=== PATIENT | male | born 1950 | race Caucasian/White ===

== ENCOUNTER 2021-10-25 03:26 | Inpatient (IN) ==
[2021-10-25] MEDS ORDERED: MoRPHine SULFATE 4 MG/ML 1 ML CARP\\VIAL IV STA ×2 (03:48→10:10)
[2021-10-25] MEDS ORDERED: ONDANSETRON INJ 2 MG/ML 2 ML VIAL IV STA (03:48)
--- NOTE | 2021-10-25 03:50 | Emergency Department Note ---
Impression & Plan Abdominal pain DC ED Provider Note HPI: The patient is a 70-year-old male with history of atrial fibrillation, on Coumadin, presents emergency department with chief complaint of acute onset right upper flank pain that began approximately 5 hours prior to arrival to the ED. Patient states he has had some nausea and an episode of vomiting as well. Patient states the pain is somewhat sharp in nature, states he has not had this pain previously. On arrival to the ED the patient is hemodynamically stable, mild distress secondary to pain and nausea but overall nontoxic-appearing. Patient is hemodynamically stable on arrival. ROS: -GI: Right upper quadrant pain/flank pain, nausea and vomiting *10 point review systems was conducted and is otherwise negative unless stated above *Outpatient medications and allergy history reviewed PE: General: Alert HEENT: Normocephalic, atraumatic Eyes: Extraocular eye movement is intact, no scleral erythema Pulmonary: Clear to auscultation bilaterally, no wheezing Cardio: Regular rate and rhythm GI: Abdomen is soft, tenderness in the right upper quadrant to palpation without guarding or rigidity, right flank tenderness : No suprapubic tenderness MSK: No evidence of trauma or malformation of the extremities, no edema Skin: No evidence of rash Neuro: Alert, no focal deficits 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 Prominent simple left renal cyst. Hydropic gallbladder measuring up to 5 cm in diameter. Right upper quadrant ultrasound could further evaluate Prominent colonic diverticula without evidence of diverticulitis. Appendix unremarkable. No free air or free fluid. Approximately 2.2 cm right adrenal adenoma. No follow-up imaging is necessary. Consider biochemical assays to determine functional status and exclude pheochromocytoma if biopsy/resection is planned. Moderate cardiomegaly. Atelectasis at the lung bases. Left hip arthroplasty. Radiologist: Adalberto Campbell M.D. Medical Decision Making: Patient presented to the emergency department chief complaint of right upper quadrant right flank pain. CT imaging was obtained that shows a hydropic gallbladder measuring up to 5 cm in diameter, no evidence of any kidney stones or hydronephrosis. Given this finding, ultrasound imaging of the right upper quadrant was obtained that shows possible acalculous cholecystitis. Patient does not have any transaminitis or elevated bilirubin. INR is noted to be 2.1. On my reassessment following this imaging patient states he still does have some upper abdominal discomfort and nausea despite receiving a dose of morphine here in the ED for pain. Surgical consult was placed, patient is pending full evaluation by the surgical team at the time of signout to my colleague, Dr. Burton, pending surgical recommendations and final disposition. Diagnosis: 1. Right-sided abdominal pain, acute 2. Acalculous cholecystitis 3. Nausea and vomiting Disposition: Admission Jaylan Barnard DO Emergency Medicine Past Med/Surg History Medical History A-fib BPH (benign prostatic hyperplasia) Depression with anxiety Diastolic dysfunction GERD (gastroesophageal reflux disease) HLD (hyperlipidemia) HTN (hypertension) Surgical History History of bilateral knee replacement History of hernia repair History of sinus surgery History of total left hip arthroplasty Family History Father Prostate cancer Coronary heart disease Mother CHF (congestive heart failure) Social History (Updated 10/25/21 @ 10:29 by Tamiko Castillo PA-C) Smoking Status: Never smoker Hx Alcohol Use: Yes Alcohol type: beer Alcohol Intake Frequency: 4 or More x per/Week Alcohol Intake Frequency Comment: 15 light beers/wk Hx Substance Use: No Preferred Language: Lithuanian Communication Ability: Effective Modeling Agent Required: No Beliefs That Will Affect Care: None marital status: Current Living Situation: Spouse current occupational status: retired Other Information That Helps Us Care for You: No Feels Safe at Home: Yes Safety Concerns: Feels Safe At This Time Assistive Devices: Glasses and Hearing Aid - Bilateral Allergies Allergies Allergy/AdvReac Type Severity Reaction Status Date / Time No Known Allergies Allergy Verified 12/08/18 15:35 Home Meds Home Medications Medication Instructions Recorded Confirmed amlodipine 10 mg tablet 10 mg PO DAILY 12/08/18 10/25/21 atorvastatin 20 mg tablet 20 mg PO DAILY 12/08/18 10/25/21 buspirone 10 mg tablet 10 mg PO BID 12/08/18 10/25/21 lorazepam 1 mg tablet 1 mg PO PM 12/08/18 10/25/21 lorazepam 2 mg tablet 2 mg PO QAM 12/08/18 10/25/21 metoprolol succinate 50 mg 50 mg PO DAILY 12/08/18 10/25/21 tablet,extended release 24 hr potassium chloride 10 mEq 10 meq PO TIDM 12/08/18 10/25/21 tablet,extended release(part/cryst) sertraline 100 mg tablet 300 mg PO QAM 12/08/18 10/25/21 warfarin 6 mg tablet 3 mg PO SUTUTHFR@1630 12/08/18 10/25/21 warfarin 6 mg tablet 6 mg PO MOWESA@1630 12/08/18 10/25/21 finasteride 5 mg tablet 5 mg PO DAILY 10/25/21 10/25/21 losartan 100 mg tablet 100 mg PO DAILY 10/25/21 10/25/21 pantoprazole 20 mg tablet,delayed 20 mg PO DAILY 10/25/21 10/25/21 release risperidone 0.5 mg tablet 0.5 mg PO AMHS 10/25/21 10/25/21 Results & Data (ED) Vital Signs Vital Signs - 24 hr 10/25/21 03:30 10/25/21 04:30 10/25/21 05:00 Temperature 36.4 C L Temperature Source Temporal Artery Scan Pulse Rate 81 68 79 Pulse Rate from SpO2 Sensor 72 76 Respiratory Rate 18 17 22 Respiratory Effort / Characteristics Non-Labored Spontaneous Respiratory Depth Normal Blood Pressure 142/96 H 150/86 H 146/84 H Blood Pressure Mean 111 107 104 Pulse Oximetry 98 95 95 Oxygen Delivery Method Room Air Room Air Room Air Sepsis New/Unexplained Change in Mental Status N/A Sepsis Action Taken by Nursing No Action Required 10/25/21 05:30 10/25/21 06:23 10/25/21 06:30 Temperature Temperature Source Pulse Rate 77 72 Pulse Rate from SpO2 Sensor 72 72 Respiratory Rate 20 24 Respiratory Effort / Characteristics Respiratory Depth Blood Pressure 151/104 H 149/99 H 142/89 H Blood Pressure Mean 119 115 106 Pulse Oximetry 96 95 Oxygen Delivery Method Room Air Room Air Sepsis New/Unexplained Change in Mental Status Sepsis Action Taken by Nursing 10/25/21 06:30 10/25/21 07:00 10/25/21 07:00 Temperature Temperature Source Pulse Rate 79 76 Pulse Rate from SpO2 Sensor 81 Respiratory Rate 25 H 21 Respiratory Effort / Characteristics Respiratory Depth Blood Pressure 161/97 H Blood Pressure Mean 118 Pulse Oximetry 96 Oxygen Delivery Method Sepsis New/Unexplained Change in Mental Status Sepsis Action Taken by Nursing 10/25/21 07:30 10/25/21 07:30 10/25/21 08:00 Temperature Temperature Source Pulse Rate 78 Pulse Rate from SpO2 Sensor 77 Respiratory Rate 17 Respiratory Effort / Characteristics Respiratory Depth Blood Pressure 150/94 H 144/94 H Blood Pressure Mean 112 110 Pulse Oximetry 91 Oxygen Delivery Method Sepsis New/Unexplained Change in Mental Status Sepsis Action Taken by Nursing 10/25/21 08:00 10/25/21 08:30 10/25/21 08:30 Temperature Temperature Source Pulse Rate 76 73 Pulse Rate from SpO2 Sensor 78 75 Respiratory Rate 19 18 Respiratory Effort / Characteristics Respiratory Depth Blood Pressure 168/99 H Blood Pressure Mean 122 Pulse Oximetry 97 98 Oxygen Delivery Method Sepsis New/Unexplained Change in Mental Status Sepsis Action Taken by Nursing 10/25/21 09:00 10/25/21 09:00 Temperature Temperature Source Pulse Rate 78 Pulse Rate from SpO2 Sensor 76 Respiratory Rate 24 Respiratory Effort / Characteristics Respiratory Depth Blood Pressure 169/99 H Blood Pressure Mean 122 Pulse Oximetry 96 Oxygen Delivery Method Sepsis New/Unexplained Change in Mental Status Sepsis Action Taken by Nursing Laboratory Data Result diagrams: 10/25/21 03:45 10/25/21 03:45 Lab Results 10/25/21 10/25/21 10/25/21 Range/Units 03:40 03:45 03:45 WBC 8.99 (4.8-10.8) K/ul RBC 5.21 (4.63-6.08) M/uL Hgb 15.2 (14.0-18.0) g/dl Hct 44.4 (40.1-51.0) % MCV 85.2 (80.0-100.0) fL MCH 29.2 (25.0-34.0) pg MCHC 34.2 (32.0-36.0) g/dL RDW Std Deviation 41.4 (36.4-46.3) fL RDW Coeff of Radu 13.3 (11.5-14.5) % Plt Count 119 L (130-400) K/uL MPV 10.2 (9.4-12.4) fL Immature Gran % (Auto) 0.3 % Neut % (Auto) 83.9 % Lymph % (Auto) 7.6 % [place] % (Auto) 7.0 % Eos % (Auto) 0.8 % Baso % (Auto) 0.4 % Neut # (Auto) 7.54 H (1.4-6.5) K/uL Lymph # (Auto) 0.68 L (1.2-3.4) K/uL [place] # (Auto) 0.63 (0.24-0.82) K/uL Eos # (Auto) 0.07 (0-0.50) K/uL Baso # (Auto) 0.04 (0-0.2) K/uL Immature Gran # (Auto) 0.03 H (0.00-0.02) K/uL RBC Morphology Unremarkable PT (9.0-12.0) Seconds INR (0.9-1.1) Sodium 137 (136-145) mmol/L Potassium 3.3 L (3.5-5.1) mmol/L Chloride 101 (98-107) mmol/L Carbon Dioxide 28 (21-32) mmol/L Anion Gap 8 (3-11) BUN 14 (6-23) mg/dl Creatinine 0.95 (0.6-1.4) mg/dl Est Cr Clr Drug Dosing 83.8 ml/min Est GFR ( Amer) 92.3 ml/min Est GFR (Non-Af Amer) 79.7 ml/min BUN/Creatinine Ratio 14.7 (10-20) Glucose 119 H (70-99(Fasting)) mg/dl Calcium 8.8 (8.5-10.1) mg/dl Total Bilirubin 0.9 (0.2-1.0) mg/dl AST 37 (13-39) U/L ALT 39 (7-52) U/L Alkaline Phosphatase 100 (34-104) U/L Total Protein 7.5 (6.0-8.3) gm/dl Albumin 4.4 (3.4-5.0) gm/dl Globulin 3.1 (2.5-4.0) gm/dl Albumin/Globulin Ratio 1.4 (0.9-2) Lipase 27 (11-82) U/L Urine Color Dark Yellow Urine Appearance Clear (Clear) Urine pH 5.5 (4.5-7.5) Ur Specific Martin 1.023 (1.000-1.030) Urine Protein 2+ H (Negative) Urine Glucose (UA) Negative (Negative) Urine Ketones Trace H (Negative) Urine Blood Trace H (Negative) Urine Nitrite Negative (Negative) Urine Bilirubin Negative (Negative) Urine Urobilinogen Negative (Negative) Ur Leukocyte Esterase Negative (Negative) Urine WBC (Auto) 0 (0-5) /hpf Urine RBC (Auto) 0-4 (0-4) /hpf U Hyaline Cast (Auto) 1-5 (0-5) /lpf U Epithel Cells (Auto) 5-10 H (0-5) /lpf Urine Bacteria (Auto) Negative (Negative) SARS-CoV-2, RNA, NAAT (NEGATIVE) 10/25/21 10/25/21 Range/Units 03:45 09:10 WBC (4.8-10.8) K/ul RBC (4.63-6.08) M/uL Hgb (14.0-18.0) g/dl Hct (40.1-51.0) % MCV (80.0-100.0) fL MCH (25.0-34.0) pg MCHC (32.0-36.0) g/dL RDW Std Deviation (36.4-46.3) fL RDW Coeff of Radu (11.5-14.5) % Plt Count (130-400) K/uL MPV (9.4-12.4) fL Immature Gran % (Auto) % Neut % (Auto) % Lymph % (Auto) % [place] % (Auto) % Eos % (Auto) % Baso % (Auto) % Neut # (Auto) (1.4-6.5) K/uL Lymph # (Auto) (1.2-3.4) K/uL [place] # (Auto) (0.24-0.82) K/uL Eos # (Auto) (0-0.50) K/uL Baso # (Auto) (0-0.2) K/uL Immature Gran # (Auto) (0.00-0.02) K/uL RBC Morphology PT 21.5 H (9.0-12.0) Seconds INR 2.1 H (0.9-1.1) Sodium (136-145) mmol/L Potassium (3.5-5.1) mmol/L Chloride (98-107) mmol/L Carbon Dioxide (21-32) mmol/L Anion Gap (3-11) BUN (6-23) mg/dl Creatinine (0.6-1.4) mg/dl Est Cr Clr Drug Dosing ml/min Est GFR ( Amer) ml/min Est GFR (Non-Af Amer) ml/min BUN/Creatinine Ratio (10-20) Glucose (70-99(Fasting)) mg/dl Calcium (8.5-10.1) mg/dl Total Bilirubin (0.2-1.0) mg/dl AST (13-39) U/L ALT (7-52) U/L Alkaline Phosphatase (34-104) U/L Total Protein (6.0-8.3) gm/dl Albumin (3.4-5.0) gm/dl Globulin (2.5-4.0) gm/dl Albumin/Globulin Ratio (0.9-2) Lipase (11-82) U/L Urine Color Urine Appearance (Clear) Urine pH (4.5-7.5) Ur Specific Martin (1.000-1.030) Urine Protein (Negative) Urine Glucose (UA) (Negative) Urine Ketones (Negative) Urine Blood (Negative) Urine Nitrite (Negative) Urine Bilirubin (Negative) Urine Urobilinogen (Negative) Ur Leukocyte Esterase (Negative) Urine WBC (Auto) (0-5) /hpf Urine RBC (Auto) (0-4) /hpf U Hyaline Cast (Auto) (0-5) /lpf U Epithel Cells (Auto) (0-5) /lpf Urine Bacteria (Auto) (Negative) SARS-CoV-2, RNA, NAAT NEGATIVE (NEGATIVE) Administered Medications Amlodipine Besylate (Amlodipine Besylate 5 Mg Tab) 10 mg PO DAILY LI Stop: 11/24/21 11:29 Last Admin: 10/25/21 12:26 Dose: 10 mg Documented By: JAMES Atorvastatin Calcium (Atorvastatin 20 Mg Tab) 20 mg PO DAILY LI Stop: 11/24/21 11:29 Last Admin: 10/25/21 12:26 Dose: 20 mg Documented By: JAMES Buspirone HCl (Buspirone 5 Mg Tab) 10 mg PO BID LI Stop: 11/24/21 11:29 Last Admin: 10/25/21 20:59 Dose: 10 mg Documented By: Admin: 10/25/21 13:06 Dose: 10 mg Documented By: JAMES Finasteride (Finasteride 5 Mg Tab) 5 mg PO DAILY [facility] Stop: 11/24/21 11:29 Last Admin: 10/25/21 12:26 Dose: 5 mg Documented By: JAMES Piperacillin Sod/Tazobactam (Sod 4.5 gm/ Dextrose) 120 mls @ 30 mls/hr IV Q8H [facility]; Protocol Stop: 11/04/21 17:59 Last Infusion: 10/25/21 21:13 Dose: 0 mls/hr Documented By: Admin: 10/25/21 17:10 Dose: 30 mls/hr Documented By: JAMES Lactated Ringer's (Lr) 1,000 mls @ 75 mls/hr IV .[id number] [facility] Stop: 11/24/21 11:29 Last Infusion: 10/25/21 13:02 Dose: 0 mls/hr Documented By: Admin: 10/25/21 12:02 Dose: 75 mls/hr Documented By: JAMES Lorazepam (Lorazepam 1 Mg Tab) 2 mg PO QAM [facility] Stop: 11/24/21 11:29 Last Admin: 10/25/21 12:26 Dose: 2 mg Documented By: JAMES Lorazepam (Lorazepam 1 Mg Tab) 1 mg PO DAILY@1700 [facility] Stop: 11/24/21 16:59 Last Admin: 10/25/21 17:10 Dose: 1 mg Documented By: JAMES Metoprolol Succinate (Metoprolol Succ 50mg Ext Rel Tab) 50 mg PO DAILY LI Stop: 11/24/21 11:29 Last Admin: 10/25/21 12:26 Dose: 50 mg Documented By: JAMES Potassium Chloride (Potassium Chloride 10 Meq Tabcr) 10 meq PO TIDM [facility] Stop: 11/24/21 11:59 Last Admin: 10/25/21 17:10 Dose: 10 meq Documented By: Admin: 10/25/21 12:30 Dose: 10 meq Documented By: JAMES Risperidone (Risperidone 0.5 Mg Tablet) 0.5 mg PO BID [facility] Stop: 11/24/21 20:59 Last Admin: 10/25/21 20:59 Dose: 0.5 mg Documented By: ED Discontinued Medications Phytonadione 5 mg/ Dextrose 50.5 mls @ 101 mls/hr IV 1145 ONE Stop: 10/25/21 12:14 Last Infusion: 10/25/21 13:12 Dose: 0 mls/hr Documented By: Admin: 10/25/21 12:27 Dose: 101 mls/hr Documented By: JAMES Piperacillin Sod/Tazobactam (Sod 4.5 gm/ Dextrose) 120 mls @ 240 mls/hr IV ONE ONE; Protocol Stop: 10/25/21 12:29 Last Infusion: 10/25/21 13:37 Dose: 0 mls/hr Documented By: Admin: 10/25/21 13:06 Dose: 240 mls/hr Documented By: JAMES Morphine Sulfate (Morphine Sulfate 4 Mg/Ml 1 Ml Carp\Vial) 4 mg IV NOW STA Stop: 10/25/21 03:49 Last Admin: 10/25/21 04:14 Dose: 4 mg Documented By: THERESA Morphine Sulfate (Morphine Sulfate 4 Mg/Ml 1 Ml Carp\Vial) 4 mg IV NOW STA Stop: 10/25/21 10:11 Last Admin: 10/25/21 10:19 Dose: 4 mg Documented By: ML Ondansetron HCl (Ondansetron Inj 2 Mg/Ml 2 Ml Vial) 4 mg IV NOW STA Stop: 10/25/21 03:49 Last Admin: 10/25/21 09:06 Dose: Not Given Documented By: ML Potassium Chloride (Potassium Chloride Crtab 20 Meq Tabcr) 40 meq PO NOW STA Stop: 10/25/21 09:40 Last Admin: 10/25/21 10:19 Dose: 40 meq Documented By: ML Imaging Data Radiologist's Impression: Abdomen/Pelvis CT 10/25/21 03:48 CT abd pelvis wo con CLINICAL HISTORY: R flank pain TECHNIQUE: Helical axial images of the abdomen and pelvis were obtained. Automated dose lowering techniques and/or adjustment according to patient size were utilized for this exam. This exam was performed without intravenous contrast. CT DOSE: 1461.64 mGy.cm COMPARISON: None available at the time of this dictation. FINDINGS: Lower chest: Bibasilar atelectasis versus scarring is seen. Cardiomegaly is partially visualized. Liver: Unremarkable. No focal lesions are seen. Gallbladder and biliary tree: There is prominence of the gallbladder with wall thickening to 4 mm. No intra- or extrahepatic biliary ductal dilation. Pancreas: Unremarkable, no focal lesions. Spleen: Unremarkable. 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 Kidneys and ureters: A left kidney superior pole cyst is noted. No evidence of hydronephrosis or obstructive lithiasis. Bladder: Limited evaluation due to underdistention. Reproductive organs: Unremarkable. Bowel: Diverticulosis is seen without evidence of diverticulitis. The appendix is normal. A hiatal hernia is seen. Lymph nodes Retroperitoneal: Unremarkable. Mesenteric: Unremarkable. Pelvic: Unremarkable. Peritoneum: Normal. Vessels: Atherosclerotic calcifications are seen. Abdominal wall: Unremarkable. Bones: Degenerative changes in the visualized spine. A left hip total arthroplasty is seen. IMPRESSION: Prominent hydropic gallbladder with wall thickening. This is further evaluated by ultrasound gallbladder performed same day. If clinical uncertainty remains, nuclear medicine HIDA scan can be performed. ACT 112: Negative or not required by law. Electronically signed by: Quincy Bush M.D. 10/25/2021 8:16 AM Gallbladder Ultrasound 10/25/21 05:29 US gallbladder LIMITED ABDOMEN CLINICAL HISTORY: RUQ pain. COMPARISON: None. TECHNIQUE: Multiple grayscale and color images of the right upper quadrant of the abdomen. FINDINGS: The study is limited by overlying bowel gas. Pancreas: The pancreas could not be visualized. Liver: The left lobe of the liver is also obscured. Right lobe is within normal limits. There is no evidence for a focal mass. There is no intrahepatic biliary duct dilatation. Gallbladder: The gallbladder is distended and filled with sludge. No definite calculi are seen. However, there is very minimal wall thickening or pericholecystic edema. There was reportedly a negative sonographic Mckeon sign. However, the patient was sedated. Common Bile Duct: (CBD): It is normal in size measuring 6 mm. Inferior Vena Cava (IVC): The imaged IVC is patent. Right kidney: There is no evidence for hydronephrosis, calculus or gross renal mass. There is a small 1.3 cm simple cyst present. The kidney is normal in size. It measures 11.8 x 6.4 x 6.1 cm. IMPRESSION: 1. Distended gallbladder with sludge, mild gallbladder wall thickening and minimal pericholecystic edema. The presence of early acalculous cholecystitis cannot be excluded based on this study. ACT 112: Negative or not required by law. Electronically signed by: Satya Briscoe M.D. 10/25/2021 7:09 AM Discharge Plan Visit Data Chief Complaint: Flank Pain Stated Complaint: FLANK PAIN,VOMITING ED Provider: Fifi Burton Discharge Problem: Abdominal pain Patient Disposition: Admitted As Inpatient Discharge Instructions Interventions: ED Discharge Assessment Last Done: 10/25/21 10:27
[2021-10-25 04:33] LABS: Albumin Globulin Ratio 1.4 (0.9-2); Albumin Level 4.4 gm/dl (3.4-5.0); BUN Creatinine Ratio 14.7 (10-20); Bilirubin,Total 0.9 mg/dl (0.2-1.0); Calcium 8.8 mg/dl (8.5-10.1); Creatinine Clr Calc Pharmacy 83.8 ml/min; Est GFR (African American) 92.3 ml/min; Est GFR (Non-African American) 79.7 ml/min; Globulin 3.1 gm/dl (2.5-4.0); Potassium 3.3 mmol/L (3.5-5.1); Total Protein 7.5 gm/dl (6.0-8.3)
[2021-10-25 04:35] LABS: INR 2.1 (0.9-1.1); Prothrombin Time 21.5 Seconds (9.0-12.0)
[2021-10-25 04:53] LABS: Hematocrit (blood only) 44.4 % (40.1-51.0); Hemoglobin 15.2 g/dl (14.0-18.0); Mean Corpuscular Hemoglobin 29.2 pg (25.0-34.0); Mean Corpuscular Hgb Conc 34.2 g/dL (32.0-36.0); Mean Corpuscular Volume 85.2 fL (80.0-100.0); Mean Platelet Volume 10.2 fL (9.4-12.4); Platelet Count 119 K/uL (130-400); RDW Coefficient of Variation 13.3 % (11.5-14.5); RDW Standard Deviation 41.4 fL (36.4-46.3); Red Blood Count 5.21 M/uL (4.63-6.08); White Blood Count 8.99 K/ul (4.8-10.8)
[2021-10-25 04:54] LABS: Basophils # (auto) 0.04 K/uL (0-0.2); Basophils % (auto) 0.4 %; Eosinophils # (auto) 0.07 K/uL (0-0.50); Eosinophils % (auto) 0.8 %; Immature Granulocytes # (auto) 0.03 K/uL (0.00-0.02); Immature Granulocytes % (auto) 0.3 %; Lymphocytes # (auto) 0.68 K/uL (1.2-3.4); Lymphocytes % (auto) 7.6 %; Monocytes # (auto) 0.63 K/uL (0.24-0.82); Neutrophils # (auto) 7.54 K/uL (1.4-6.5); Neutrophils % (auto) 83.9 %; RBC Morphology Unremarkable
[2021-10-25 05:08] LABS: Appearance Urine Clear (Clear); Bacteria Urine Automated Negative (Negative); Bilirubin Urine Negative (Negative); Blood Urine Trace (Negative); Color Urine Dark Yellow; Glucose Urine UA Negative (Negative); Ketones Urine Trace (Negative); Leukocyte Esterase Urine Negative (Negative); Nitrite Urine Negative (Negative); Protein Urine 2+ (Negative); RBC Urine Automated 0-4 /hpf (0-4); Specific Gravity Urine 1.023 (1.000-1.030); Urobilinogen Urine Negative (Negative); WBC Urine Automated 0 /hpf (0-5); pH Urine 5.5 (4.5-7.5)
--- NOTE | 2021-10-25 07:11 | Ultrasound Report ---
US gallbladder LIMITED ABDOMEN CLINICAL HISTORY: RUQ pain. COMPARISON: None. TECHNIQUE: Multiple grayscale and color images of the right upper quadrant of the abdomen. FINDINGS: The study is limited by overlying bowel gas. Pancreas: The pancreas could not be visualized. Liver: The left lobe of the liver is also obscured. Right lobe is within normal limits. There is no e vidence for a focal mass. There is no intrahepatic biliary duct dilatation. Gallbladder: The gallbladder is distended and filled with sludge. No definite calculi are seen. Howev er, there is very minimal wall thickening or pericholecystic edema. There was reportedly a negative s onographic Mckeon sign. However, the patient was sedated. Common Bile Duct: (CBD): It is normal in size measuring 6 mm. Inferior Vena Cava (IVC): The imaged IVC is patent. Right kidney: There is no evidence for hydronephrosis, calculus or gross renal mass. There is a small 1.3 cm simple cyst present. The kidney is normal in size. It measures 11.8 x 6.4 x 6.1 cm. IMPRESSION: 1. Distended gallbladder with sludge, mild gallbladder wall thickening and minimal pericholecystic ed jovan. The presence of early acalculous cholecystitis cannot be excluded based on this study. ACT 112: Negative or not required by law. Electronically signed by: Satya Briscoe M.D. 10/25/2021 7:09 AM
--- NOTE | 2021-10-25 08:18 | CT Scan Report ---
CT abd pelvis wo con CLINICAL HISTORY: R flank pain TECHNIQUE: Helical axial images of the abdomen and pelvis were obtained. Automated dose lowering tech niques and/or adjustment according to patient size were utilized for this exam. This exam was perfor med without intravenous contrast. CT DOSE: 1461.64 mGy.cm COMPARISON: None available at the time of this dictation. FINDINGS: Lower chest: Bibasilar atelectasis versus scarring is seen. Cardiomegaly is partially visualized. Liver: Unremarkable. No focal lesions are seen. Gallbladder and biliary tree: There is prominence of the gallbladder with wall thickening to 4 mm. No intra- or extrahepatic biliary ductal dilation. Pancreas: Unremarkable, no focal lesions. Spleen: Unremarkable. 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 Kidneys and ureters: A left kidney superior pole cyst is noted. No evidence of hydronephrosis or obst ructive lithiasis. Bladder: Limited evaluation due to underdistention. Reproductive organs: Unremarkable. Bowel: Diverticulosis is seen without evidence of diverticulitis. The appendix is normal. A hiatal he rnia is seen. Lymph nodes Retroperitoneal: Unremarkable. Mesenteric: Unremarkable. Pelvic: Unremarkable. Peritoneum: Normal. Vessels: Atherosclerotic calcifications are seen. Abdominal wall: Unremarkable. Bones: Degenerative changes in the visualized spine. A left hip total arthroplasty is seen. IMPRESSION: Prominent hydropic gallbladder with wall thickening. This is further evaluated by ultrasound gallblad tha performed same day. If clinical uncertainty remains, nuclear medicine HIDA scan can be performed. ACT 112: Negative or not required by law. Electronically signed by: Quincy Bush M.D. 10/25/2021 8:16 AM
[2021-10-25] MEDS ORDERED: POTASSIUM CHLORIDE CRTAB 20 MEQ TABCR PO STA (09:39)
--- NOTE | 2021-10-25 09:48 | History & Physical Report ---
Date of Service October 25, 2021 Assessment & Plan (1) Acute cholecystitis: (2) Hypokalemia: (3) A-fib: (4) HTN (hypertension): (5) HLD (hyperlipidemia): (6) Depression with anxiety: Plan This is a 70-year-old male who has significant past medical history of chronic atrial fibrillation anticoagulated on warfarin, HTN, HLD, diastolic dysfunction, GERD, BPH, depression who presents to ED secondary to right flank pain and right upper quadrant pain which started yesterday at approximately 11 PM. Acute Cholecystitis admit to med tele consult general surgery Plan for OR in a.m. reverse INR, will give 5mg IV vit K IV zosyn for broad spectrum antibiotic IVF NPO will get ekg and cxr for pre op testing echo done 06/2019 EF 55%, diastolic dysfxn pt able to complete ~ to 4 METS of activity w/o getting CP or SOB. He is active in his yard with mowing and raking no hx of tia/cva, do not feel heparin bridging warranted at this time consult anesthesia relative low risk procedure, per revised cardiac index risk of adverse events 3.9% Hypokalemia replace Chronic Atrial fib continue metoprolol hold warfarin, INR 2.1 give 5mg IV vit K so pt optimized for surgery in a.m. HTN bp stable continue amlodipine will hold losartan for now, resume when able Depression with anxiety continue buspar, zoloft and risperdone mood stable DVT ppx: hold warfarin, SCDS Dispo: med tele, OR in a.m. for acute digna PCP: Raffaele FULL CODE Pt was seen and examined in collaboration with Dr. Barragan, please see addendum History of Present Illness Chief Complaint: R flank pain/RUQ pain x 1 day. Primary Care Provider: Golden Castorena MD This is a 70-year-old male who has significant past medical history of chronic atrial fibrillation anticoagulated on warfarin, HTN, HLD, diastolic dysfunction, GERD, BPH, depression who presents to ED secondary to right flank pain and right upper quadrant pain which started yesterday at approximately 11 PM. Pain initially started in the right flank and radiated to the right upper quadrant. Pain is constant. Nothing makes pain worse. It was made better with IV morphine. He denies ever having similar symptoms in the past. Does not associated with meals. Denies any prior history of gallbladder disease. States over the last 2 to 3 days his stomach has not felt, "quite right." When pain started last evening he did have 2-3 episodes of vomiting as well as nausea. He continues to feel nauseated. He denies any fever, chills, sweats, lightheadedness, dizziness, chest pain, shortness of breath, cough, URI symptoms, hematemesis, melena, medic easier, dysuria, increased urgency or frequency with urination. In ED patient remained hemodynamically stable. Imaging revealed a calculus cholecystitis. General surgery was consulted and plan is for patient to go to the OR tomorrow morning at 730 AM. Allergies Allergy/AdvReac Type Severity Reaction Status Date / Time No Known Allergies Allergy Verified 12/08/18 15:35 Home Medications Medication Instructions Recorded Confirmed Type amlodipine 10 mg tablet 10 mg PO DAILY 12/08/18 10/25/21 History atorvastatin 20 mg tablet 20 mg PO DAILY 12/08/18 10/25/21 History buspirone 10 mg tablet 10 mg PO BID 12/08/18 10/25/21 History lorazepam 1 mg tablet 1 mg PO PM 12/08/18 10/25/21 History lorazepam 2 mg tablet 2 mg PO QAM 12/08/18 10/25/21 History metoprolol succinate 50 mg 50 mg PO DAILY 12/08/18 10/25/21 History tablet,extended release 24 hr potassium chloride 10 mEq 10 meq PO TIDM 12/08/18 10/25/21 History tablet,extended release(part/cryst) sertraline 100 mg tablet 300 mg PO QAM 12/08/18 10/25/21 History warfarin 6 mg tablet 3 mg PO SUTUTHFR@1630 12/08/18 10/25/21 History warfarin 6 mg tablet 6 mg PO MOWESA@1630 12/08/18 10/25/21 History finasteride 5 mg tablet 5 mg PO DAILY 10/25/21 10/25/21 History losartan 100 mg tablet 100 tab PO DAILY 10/25/21 10/25/21 History pantoprazole 20 mg tablet,delayed 20 mg PO DAILY 10/25/21 10/25/21 History release risperidone 0.5 mg tablet 0.5 mg PO AMHS 10/25/21 10/25/21 History Past Med/Surg History Medical History A-fib BPH (benign prostatic hyperplasia) Depression with anxiety Diastolic dysfunction GERD (gastroesophageal reflux disease) HLD (hyperlipidemia) HTN (hypertension) Surgical History History of bilateral knee replacement History of hernia repair History of sinus surgery History of total left hip arthroplasty Family History Father Prostate cancer Coronary heart disease Mother CHF (congestive heart failure) Social History (Updated 10/25/21 @ 10:29 by Tamiko Castillo PA-C) Smoking Status: Never smoker Hx Alcohol Use: Yes Alcohol type: beer Alcohol Intake Frequency: 4 or More x per/Week Alcohol Intake Frequency Comment: 15 light beers/wk Hx Substance Use: No Preferred Language: Welsh marital status: Current Living Situation: Spouse current occupational status: retired Feels Safe at Home: Yes Review of Systems Review of Systems: All systems reviewed & are unremarkable except as noted in HPI & below Physical Exam Physical Exam: Constitutional: WD/WN, vitals as above, NAD, sitting up in bed, pleasant, conversing easily Head: Normocephalic, Atraumatic Eyes: PERRL, conjunctivae normal, anicteric sclerae ENMT: external ear and nose normal, oropharynx normal Neck: trachea midline, no thyromegaly normal visual inspection Respiratory: normal respiratory effort, lungs clear to auscultation, no wheeze, rales, rhonchi. Normal insp/exp effort, no accessory muscle use Cardiovascular: IRR/IRR, no murmur, no edema Vessels: no JVD or carotid bruit Chest: normal inspection of chest Abdomen: normal bowel sounds, soft, tender to palp RUQ and epigastrium, Musculoskeletal: no cyanosis or clubbing, AROM x 4 Skin: no rashes, warm and dry normal turgor Neurologic: PERRL, EOMI, accommodation nl, no face palsy, no dysarthria CN's II-XI intact bilaterally and moves all extremities Psychiatric: A+Ox3, euthymic affect : deferred Results & Data Results & Data ([facility]) Vital Signs (Past 12 Hours) Vital Signs Temp Pulse Resp BP Pulse Ox O2 Del Method 10/25/21 08:00 76 19 97 10/25/21 08:00 144/94 H 10/25/21 07:30 78 17 91 10/25/21 07:30 150/94 H 10/25/21 07:00 76 21 96 10/25/21 07:00 161/97 H 10/25/21 06:30 79 25 H 10/25/21 06:30 142/89 H 10/25/21 06:23 72 24 149/99 H 95 Room Air 10/25/21 05:30 77 20 151/104 H 96 Room Air 10/25/21 05:00 79 22 146/84 H 95 Room Air 10/25/21 04:30 68 17 150/86 H 95 Room Air 10/25/21 03:30 36.4 C L 81 18 142/96 H 98 Room Air Diagnostic Findings Abdomen/Pelvis CT 10/25/21 03:48 CT abd pelvis wo con CLINICAL HISTORY: R flank pain TECHNIQUE: Helical axial images of the abdomen and pelvis were obtained. Automated dose lowering techniques and/or adjustment according to patient size were utilized for this exam. This exam was performed without intravenous contrast. CT DOSE: 1461.64 mGy.cm COMPARISON: None available at the time of this dictation. FINDINGS: Lower chest: Bibasilar atelectasis versus scarring is seen. Cardiomegaly is partially visualized. Liver: Unremarkable. No focal lesions are seen. Gallbladder and biliary tree: There is prominence of the gallbladder with wall thickening to 4 mm. No intra- or extrahepatic biliary ductal dilation. Pancreas: Unremarkable, no focal lesions. Spleen: Unremarkable. 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 Kidneys and ureters: A left kidney superior pole cyst is noted. No evidence of hydronephrosis or obstructive lithiasis. Bladder: Limited evaluation due to underdistention. Reproductive organs: Unremarkable. Bowel: Diverticulosis is seen without evidence of diverticulitis. The appendix is normal. A hiatal hernia is seen. Lymph nodes Retroperitoneal: Unremarkable. Mesenteric: Unremarkable. Pelvic: Unremarkable. Peritoneum: Normal. Vessels: Atherosclerotic calcifications are seen. Abdominal wall: Unremarkable. Bones: Degenerative changes in the visualized spine. A left hip total arthroplasty is seen. IMPRESSION: Prominent hydropic gallbladder with wall thickening. This is further evaluated by ultrasound gallbladder performed same day. If clinical uncertainty remains, nuclear medicine HIDA scan can be performed. ACT 112: Negative or not required by law. Electronically signed by: Quincy Bush M.D. 10/25/2021 8:16 AM Gallbladder Ultrasound 10/25/21 05:29 US gallbladder LIMITED ABDOMEN CLINICAL HISTORY: RUQ pain. COMPARISON: None. TECHNIQUE: Multiple grayscale and color images of the right upper quadrant of the abdomen. FINDINGS: The study is limited by overlying bowel gas. Pancreas: The pancreas could not be visualized. Liver: The left lobe of the liver is also obscured. Right lobe is within normal limits. There is no evidence for a focal mass. There is no intrahepatic biliary duct dilatation. Gallbladder: The gallbladder is distended and filled with sludge. No definite calculi are seen. However, there is very minimal wall thickening or pericholecystic edema. There was reportedly a negative sonographic Mckeon sign. However, the patient was sedated. Common Bile Duct: (CBD): It is normal in size measuring 6 mm. Inferior Vena Cava (IVC): The imaged IVC is patent. Right kidney: There is no evidence for hydronephrosis, calculus or gross renal mass. There is a small 1.3 cm simple cyst present. The kidney is normal in size. It measures 11.8 x 6.4 x 6.1 cm. IMPRESSION: 1. Distended gallbladder with sludge, mild gallbladder wall thickening and minimal pericholecystic edema. The presence of early acalculous cholecystitis cannot be excluded based on this study. ACT 112: Negative or not required by law. Electronically signed by: Satya Briscoe M.D. 10/25/2021 7:09 AM Medications Administered Medication List Discontinued Medications Morphine Sulfate (Morphine Sulfate 4 Mg/Ml 1 Ml Carp\\Vial) 4 mg IV NOW STA Stop: 10/25/21 03:49 Last Admin: 10/25/21 04:14 Dose: 4 mg Documented By: THERESA Morphine Sulfate (Morphine Sulfate 4 Mg/Ml 1 Ml Carp\\Vial) 4 mg IV NOW STA Stop: 10/25/21 10:11 Last Admin: 10/25/21 10:19 Dose: 4 mg Documented By: ML Ondansetron HCl (Ondansetron Inj 2 Mg/Ml 2 Ml Vial) 4 mg IV NOW STA Stop: 10/25/21 03:49 Last Admin: 10/25/21 09:06 Dose: Not Given Documented By: ML Potassium Chloride (Potassium Chloride Crtab 20 Meq Tabcr) 40 meq PO NOW STA Stop: 10/25/21 09:40 Last Admin: 10/25/21 10:19 Dose: 40 meq Documented By: ML COVID-19 Results Results COVID-19 Adm Lab Results: RBC 5.21 M/uL (4.63-6.08) 10/25/21 WBC 8.99 K/ul (4.8-10.8) 10/25/21 Hgb 15.2 g/dl (14.0-18.0) 10/25/21 Hct 44.4 % (40.1-51.0) 10/25/21 Plt Count 119 K/uL (130-400) L 10/25/21 Neutrophils (%) (Auto) 83.9 % 10/25/21 Lymphocytes (%) (Auto) 7.6 % 10/25/21 Monocytes # (Auto) 0.63 K/uL (0.24-0.82) 10/25/21 Eosinophils # (Auto) 0.07 K/uL (0-0.50) 10/25/21 Immature Granulocyte % (Auto) 0.3 % 10/25/21 Neutrophils # (Auto) 7.54 K/uL (1.4-6.5) H 10/25/21 Lymphocytes # (Auto) 0.68 K/uL (1.2-3.4) L 10/25/21 Monocytes # (Auto) 0.63 K/uL (0.24-0.82) 10/25/21 Eosinophils # (Auto) 0.07 K/uL (0-0.50) 10/25/21 Basophils # (Auto) 0.04 K/uL (0-0.2) 10/25/21 Immature Granulocyte # (Auto) 0.03 K/uL (0.00-0.02) H 10/25 Red Blood Cell Morphology Unremarkable 10/25/21 Na 137 mmol/L (136-145) 10/25/21 K 3.3 mmol/L (3.5-5.1) L 10/25/21 Cl 101 mmol/L (98-107) 10/25/21 CO2 28 mmol/L (21-32) 10/25/21 Anion Gap 8 (3-11) 10/25/21 BUN 14 mg/dl (6-23) 10/25/21 Creatinine 0.95 mg/dl (0.6-1.4) 10/25/21 BUN/Creatinine Ratio 14.7 (10-20) 10/25/21 Glucose Level 119 mg/dl (70-99(Fasting)) H 10/25/21 Ca 8.8 mg/dl (8.5-10.1) 10/25/21 Total Bilirubin 0.9 mg/dl (0.2-1.0) 10/25/21 AST/SGOT 37 U/L (13-39) 10/25/21 ALT/SGPT 39 U/L (7-52) 10/25/21 Alkaline Phosphatase 100 U/L (34-104) 10/25/21 Total Protein 7.5 gm/dl (6.0-8.3) 10/25/21 Albumin 4.4 gm/dl (3.4-5.0) 10/25/21 Globulin 3.1 gm/dl (2.5-4.0) 10/25/21 Albumin/Globulin Ratio 1.4 (0.9-2) 10/25/21 INR 2.1 (0.9-1.1) H 10/25/21 SARS-CoV-2, RNA, NAAT NEGATIVE (NEGATIVE) 10/25/21 Code Status & VTE Plan Code Status FULL CODE VTE Prophylaxis Plan VTE Prophylaxis will be ordered: Yes Supervising Physician Co-Signing Physician Notes Patient was seen and examined with Tamiko LOGAN at bedside. at bedside. Chart reviewed. Case discussed with Tamiko and agree with the documentation above. In summary, this is a 70 year old male with history of chronic Afib on coumadin, HTN, depression who presented to the ED with right flank and upper quadrant pain since last night along with vomiting. No fever or chills. In the ED, afebrile, hemodynamically stable. AAO, sitting comfortably in bed, on room air. chest clear, heart sounds irregularly irregular but rate controlled, RUQ tenderness otherwise benign abd, no edema. Asking for pain medication as pain medication given earlier today has worn off. Hasn't taken any of his morning meds today. Takes coumadin in the morning, last dose yesterday morning. INR 2.1, CBC WNL, LFT WNL. RUQ US with GB distension with sludge concerning for early acalculous cholecystitis. Spoke with Dr Macias at bedside, plan for surgery tomorrow. Hold coumadin. Give IV vit K x1 to reverse INR, recheck INR in am, if still elevated consider FFP. Keep NPO. Continue other home medication. Monitor in medsurg tele. Denies any chest pain, can do exertional activities and climb flight of stairs without issues, last stress test a year ago. He can proceed to sugery without need for further testing. Rest as per note above.
--- NOTE | 2021-10-25 10:24 | Surgery Consultation ---
Date of Consultation October 25, 2021 Assessment & Plan (1) Acute cholecystitis: Plan At this point we will keep the patient n.p.o. broad-spectrum antibiotics would be given vitamin K 1 dose should be given replace potassium and plan for surgery in the morning Risk and complications were explained to the patient including bleeding infection conversion open procedure and he and his would like to proceed for him to have surgery All question answered He is on the surgical schedule for 730 tomorrow morning we will repeat a potassium and INR in the morning These plans were also discussed with the medical service who is going to admit the patient History of Present Illness Reason for Consultation: Acute cholecystitis History of Present Illness This 70-year-old gentleman well-known to me approximately 12 years ago with fixed and large right inguinal scrotal hernia with mesh has had a history of atrial fibrillation on Coumadin last evening he ate a some sandwich and started experiencing pain that radiated to his back and underneath his right rib came into the emergency room had a few bouts of emesis and work-up revealed acute cholecystitis He does have a family history of gallbladder disease He states he normally does not eat any greasy or fried foods or spicy foods but he does eat quiros sandwich once in a while and that bothersome Other than that he is fairly active without any chest pain or shortness of breath Allergies Allergy/AdvReac Type Severity Reaction Status Date / Time No Known Allergies Allergy Verified 12/08/18 15:35 Home Medications Medication Instructions Recorded Confirmed Type amlodipine 10 mg tablet 10 mg PO DAILY 12/08/18 10/25/21 History atorvastatin 20 mg tablet 20 mg PO DAILY 12/08/18 10/25/21 History buspirone 10 mg tablet 10 mg PO BID 12/08/18 10/25/21 History lorazepam 1 mg tablet 1 mg PO PM 12/08/18 10/25/21 History lorazepam 2 mg tablet 2 mg PO QAM 12/08/18 10/25/21 History metoprolol succinate 50 mg 50 mg PO DAILY 12/08/18 10/25/21 History tablet,extended release 24 hr potassium chloride 10 mEq 10 meq PO TIDM 12/08/18 10/25/21 History tablet,extended release(part/cryst) sertraline 100 mg tablet 300 mg PO QAM 12/08/18 10/25/21 History warfarin 6 mg tablet 3 mg PO SUTUTHFR@1630 12/08/18 10/25/21 History warfarin 6 mg tablet 6 mg PO MOWESA@1630 12/08/18 10/25/21 History finasteride 5 mg tablet 5 mg PO DAILY 10/25/21 10/25/21 History losartan 100 mg tablet 100 mg PO DAILY 10/25/21 10/25/21 History pantoprazole 20 mg tablet,delayed 20 mg PO DAILY 10/25/21 10/25/21 History release risperidone 0.5 mg tablet 0.5 mg PO AMHS 10/25/21 10/25/21 History Patient History Medical History A-fib BPH (benign prostatic hyperplasia) Depression with anxiety Diastolic dysfunction GERD (gastroesophageal reflux disease) HLD (hyperlipidemia) HTN (hypertension) Surgical History History of bilateral knee replacement History of hernia repair History of sinus surgery History of total left hip arthroplasty Family History Father Prostate cancer Coronary heart disease Mother CHF (congestive heart failure) Social History (Updated 10/25/21 @ 10:29 by Tamiko Castillo PA-C) Smoking Status: Never smoker Hx Alcohol Use: Yes Alcohol type: beer Alcohol Intake Frequency: 4 or More x per/Week Alcohol Intake Frequency Comment: 15 light beers/wk Hx Substance Use: No Preferred Language: Beninese Communication Ability: Effective Brand Mgr Required: No Beliefs That Will Affect Care: None marital status: Current Living Situation: Spouse current occupational status: retired Other Information That Helps Us Care for You: No Feels Safe at Home: Yes Safety Concerns: Feels Safe At This Time Assistive Devices: Glasses and Hearing Aid - Bilateral Physical Exam Physical Exam: Alert coherent no acute distress at this time bit nauseated The sclera is nonicteric No cervical lymphadenopathy Lungs clear bilaterally Heart regular regular rate The abdomen shows a transverse right upper quadrant 8 cm incision that was used to harvest a skin graft to place in the sinus surgery There is no recurrent right inguinal hernia Patient is tender in the right upper quadrant I cannot elicit a Mckeon sign at this time Extremity no pedal edema and good peripheral pulses appreciated Results & Data ([facility]) Vital Signs (Past 12 Hours) Vital Signs Temp Pulse Resp BP Pulse Ox O2 Del Method 10/25/21 10:09 148/94 H 10/25/21 10:09 80 20 10/25/21 09:00 78 24 96 10/25/21 09:00 169/99 H 10/25/21 08:30 73 18 98 10/25/21 08:30 168/99 H 10/25/21 08:00 76 19 97 10/25/21 08:00 144/94 H 10/25/21 07:30 78 17 91 10/25/21 07:30 150/94 H 10/25/21 07:00 76 21 96 10/25/21 07:00 161/97 H 10/25/21 06:30 79 25 H 10/25/21 06:30 142/89 H 10/25/21 06:23 72 24 149/99 H 95 Room Air 10/25/21 05:30 77 20 151/104 H 96 Room Air 10/25/21 05:00 79 22 146/84 H 95 Room Air 10/25/21 04:30 68 17 150/86 H 95 Room Air 10/25/21 03:30 36.4 C L 81 18 142/96 H 98 Room Air Laboratory Results Normal white count with a left shift INR 2.1 Potassium 3.3 Diagnostic Findings Acute cholecystitis by CAT scan PG Care Time/CCT Total # of Minutes Spent Total Time Spent with Patient: Total time spent is greater than 50% in coordination of care (as documented) at patient's floor/unit and/or counseling patient: Coding Level of Care Code 45335 Initial Inpt Care Lvl 3 Diagnoses Acute cholecystitis K81.0
[2021-10-25] MEDS ORDERED: MAGNESIUM HYDROXIDE SUSP 30 ML UDC PO PRN (11:30)
[2021-10-25] MEDS ORDERED: ACETAMINOPHEN 325 MG TAB PO PRN (11:30)
[2021-10-25] MEDS ORDERED: ACETAMINOPHEN 1,000 MG/100 ML VIAL IV PRN (11:30)
[2021-10-25] MEDS ORDERED: ALUMINUM/MAGNESIUM SUSP 30 ML UDC PO PRN (11:30)
[2021-10-25] MEDS ORDERED: POLYETHYLENE (MIRALAX) 17 GM PACK PO PRN (11:30)
[2021-10-25] MEDS ORDERED: MoRPHine SULFATE 2 MG/ML CARP IV PRN (11:30)
[2021-10-25] MEDS ORDERED: ONDANSETRON INJ 2 MG/ML 2 ML VIAL IV PRN (11:30)
--- NOTE | 2021-10-25 11:32 | XRay Report ---
XR chest 1V portable HISTORY: Right upper quadrant pain. Preop. COMPARISON: Chest 03/17/2020. FINDINGS: No pneumothorax. No pleural effusions. The cardiac silhouette remains mildly enlarged. Ther e are old, healed left-sided rib fractures. No new focal lung consolidations to suggest pneumonia. No evidence for pulmonary edema. IMPRESSION: No significant change compared to the prior study. No acute process. ACT 112: Negative or not required by law. Electronically signed by: Dennis Baldwin M.D. 10/25/2021 11:31 AM
[2021-10-25] MEDS ORDERED: PHYTONADIONE 5 MG in DEXTROSE 5% 50 ML IV ONE (11:45)
[2021-10-25] MEDS ORDERED: PIPERACILLIN/TAZOBACTAM 4.5 GM in DEXTROSE 5% 100 ML IV ONE (12:00)
[2021-10-25] MEDS: LACTATED RINGER'S 1,000 ML IV SCH (12:02)
[2021-10-25] MEDS: amLODIPine BESYLATE 5 MG TAB PO SCH (12:26)
[2021-10-25] MEDS: LORazepam 1 MG TAB PO SCH ×2 (12:26→17:10)
[2021-10-25] MEDS: METOPROLOL SUCC 50MG EXT REL TAB PO SCH (12:26)
[2021-10-25] MEDS: FINASTERIDE 5 MG TAB PO SCH (12:26)
[2021-10-25] MEDS: ATORVASTATIN 20 MG TAB PO SCH (12:26)
[2021-10-25] MEDS: POTASSIUM CHLORIDE 10 MEQ TABCR PO SCH ×2 (12:30→17:10)
[2021-10-25] MEDS: busPIRone 5 MG TAB PO SCH ×2 (13:06→20:59)
[2021-10-25] MEDS: PIPERACILLIN/TAZOBACTAM 4.5 GM in DEXTROSE 5% 100 ML IV SCH (17:10)
--- NOTE | 2021-10-25 18:13 | Electrocardiogram Report ---
Test Reason : Blood Pressure : / mmHG Vent. Rate : 076 BPM Atrial Rate : 227 BPM P-R Int : 000 ms QRS Dur : 116 ms QT Int : 400 ms P-R-T Axes : 000 -34 -18 degrees QTc Int : 450 ms Atrial fibrillation Left axis deviation Incomplete right bundle branch block Anterior infarct , age undetermined Abnormal ECG When compared with ECG of 18-MAR-2020 10:42, Atrial fibrillation has replaced Sinus rhythm Incomplete right bundle branch block is now Present Confirmed by Fernando Damon ([id number]) on 10/25/2021 6:12:49 PM Referred By: REFERRED SELF Confirmed By:Michael Damon
[2021-10-25] MEDS: risperiDONE 0.5 MG TABLET PO SCH (20:59)
[2021-10-26] MEDS: LACTATED RINGER'S 1,000 ML IV SCH ×2 (01:20→06:11)
[2021-10-26] MEDS: PIPERACILLIN/TAZOBACTAM 4.5 GM in DEXTROSE 5% 100 ML IV SCH ×3 (01:21→18:07)
[2021-10-26 07:02] LABS: INR 1.2 (0.9-1.1); Prothrombin Time 13.1 Seconds (9.0-12.0)
[2021-10-26] MEDS ORDERED: GLYCOPYRROLATE 0.2 MG/ML VIAL ONE (07:08)
[2021-10-26] MEDS ORDERED: fentaNYL citrate 100 MCG/2 ML VIAL ONE ×2 (07:08→07:54)
[2021-10-26] MEDS ORDERED: NEOSTIGMINE METHYLSULFATE 1 MG/ML 10ML VIAL ONE (07:08)
[2021-10-26] MEDS ORDERED: DEXAMETHASONE SOD INJ 4 MG/ML VIAL ONE (07:08)
[2021-10-26] MEDS ORDERED: PROPOFOL IV EMULSION 10 MG/ML 20 ML VIAL IV ONE (07:08)
[2021-10-26] MEDS ORDERED: ONDANSETRON INJ 2 MG/ML 2 ML VIAL ONE (07:08)
[2021-10-26] MEDS ORDERED: MIDAZOLAM HCL 1 MG/ML 2ML VIAL ONE (07:08)
[2021-10-26 07:10] LABS: Hematocrit (blood only) 38.1 % (40.1-51.0); Hemoglobin 12.8 g/dl (14.0-18.0); Mean Corpuscular Hemoglobin 29.3 pg (25.0-34.0); Mean Corpuscular Hgb Conc 33.6 g/dL (32.0-36.0); Mean Corpuscular Volume 87.2 fL (80.0-100.0); Mean Platelet Volume 10.2 fL (9.4-12.4); Platelet Count 90 K/uL (130-400); RDW Coefficient of Variation 13.5 % (11.5-14.5); RDW Standard Deviation 42.5 fL (36.4-46.3); Red Blood Count 4.37 M/uL (4.63-6.08); White Blood Count 6.44 K/ul (4.8-10.8)
[2021-10-26] MEDS ORDERED: LIDOCAINE 1%/EPINEPHRINE 1:100,000 50 ML VIAL ONE (07:11)
[2021-10-26 07:14] LABS: Albumin Globulin Ratio 1.3 (0.9-2); Albumin Level 3.5 gm/dl (3.4-5.0); BUN Creatinine Ratio 17.1 (10-20); Calcium 8.1 mg/dl (8.5-10.1); Creatinine Clr Calc Pharmacy 113.7 ml/min; Est GFR (African American) 109.3 ml/min; Est GFR (Non-African American) 94.3 ml/min; Globulin 2.6 gm/dl (2.5-4.0); Magnesium 1.8 mg/dl (1.7-2.4); Potassium 3.3 mmol/L (3.5-5.1); Total Protein 6.1 gm/dl (6.0-8.3)
[2021-10-26] MEDS ORDERED: SUGAMMADEX SODIUM 200 MG/2 ML VIAL IV ONE (07:14)
--- NOTE | 2021-10-26 07:26 | History & Physical Bridge Note ---
Date of Service October 26, 2021 History & Physical Bridge Note I have examined the patient, reviewed the History & Physical and in the interval since the performance of the History & Physical I have noted the following changes of clinical significance: no changes noted feels better this am no further nausea RUQ on exam minimal discomfort on exam INR 1.3 K still 3.3 despite replacement all question answered permit signed
[2021-10-26 07:31] LABS: Basophils # (auto) 0.04 K/uL (0-0.2); Basophils % (auto) 0.6 %; Eosinophils # (auto) 0.04 K/uL (0-0.50); Eosinophils % (auto) 0.6 %; Immature Granulocytes # (auto) 0.01 K/uL (0.00-0.02); Immature Granulocytes % (auto) 0.2 %; Lymphocytes # (auto) 1.12 K/uL (1.2-3.4); Lymphocytes % (auto) 17.4 %; Monocytes # (auto) 0.69 K/uL (0.24-0.82); Monocytes % (auto) 10.7 %; Neutrophils # (auto) 4.54 K/uL (1.4-6.5); Neutrophils % (auto) 70.5 %; Platelet Estimate Decreased (Normal)
--- NOTE | 2021-10-26 07:33 | Anesthesiology Consultation ---
Date of Service October 26, 2021 Assessment & Plan Chart Review Chart Review: Acceptable Risk for Surgery Consults Requested none History Surgery Operation Date: 10/26/21 07:30 Proposed Procedures p Laparoscopic Cholecystectomy with Cholangiogram - Alex Macias MD, FACS Height/Weight Height: 5 ft 11 in Weight: 97.7 kg Allergies Allergy/AdvReac Type Severity Reaction Status Date / Time No Known Allergies Allergy Verified 12/08/18 15:35 Medications Home Medications Medication Instructions Recorded Confirmed Last Taken amlodipine 10 mg tablet 10 mg PO DAILY 12/08/18 10/25/21 Unknown atorvastatin 20 mg tablet 20 mg PO DAILY 12/08/18 10/25/21 Unknown buspirone 10 mg tablet 10 mg PO BID 12/08/18 10/25/21 12/08/18 AM DOSE lorazepam 1 mg tablet 1 mg PO PM 12/08/18 10/25/21 Unknown lorazepam 2 mg tablet 2 mg PO QAM 12/08/18 10/25/21 12/08/18 metoprolol succinate 50 mg 50 mg PO DAILY 12/08/18 10/25/21 Unknown tablet,extended release 24 hr potassium chloride 10 mEq 10 meq PO TIDM 12/08/18 10/25/21 12/08/18 tablet,extended release(part/cryst) WITH LUNCH sertraline 100 mg tablet 300 mg PO QAM 12/08/18 10/25/21 12/08/18 warfarin 6 mg tablet 3 mg PO SUTUTHFR@1630 12/08/18 10/25/21 12/08/18 warfarin 6 mg tablet 6 mg PO MOWESA@1630 12/08/18 10/25/21 12/06/18 finasteride 5 mg tablet 5 mg PO DAILY 10/25/21 10/25/21 Unknown losartan 100 mg tablet 100 mg PO DAILY 10/25/21 10/25/21 Unknown pantoprazole 20 mg tablet,delayed 20 mg PO DAILY 10/25/21 10/25/21 Unknown release risperidone 0.5 mg tablet 0.5 mg PO AMHS 10/25/21 10/25/21 Unknown Active Medications Generic Name Dose Route Start Last Admin Trade Name Freq PRN Reason Stop Dose Admin Amlodipine Besylate 10 mg 10/25/21 11:30 10/25/21 12:26 Amlodipine Besylate 5 Mg Tab PO 11/24/21 11:29 10 mg DAILY LI Administration Atorvastatin Calcium 20 mg 10/25/21 11:30 10/25/21 12:26 Atorvastatin 20 Mg Tab PO 11/24/21 11:29 20 mg DAILY LI Administration Buspirone HCl 10 mg 10/25/21 11:30 10/25/21 20:59 Buspirone 5 Mg Tab PO 11/24/21 11:29 10 mg BID LI Administration Finasteride 5 mg 10/25/21 11:30 10/25/21 12:26 Finasteride 5 Mg Tab PO 11/24/21 11:29 5 mg DAILY LI Administration Piperacillin Sod/Tazobactam 120 mls @ 30 mls/hr 10/25/21 18:00 10/26/21 05:22 Sod 4.5 gm/ Dextrose IV 11/04/21 17:59 Infused Q8H LI Infusion Protocol Lactated Ringer's 1,000 mls @ 75 mls/hr 10/25/21 11:30 10/26/21 06:11 Lr IV 11/24/21 11:29 75 mls/hr .[id number] LI Administration Lorazepam 2 mg 10/25/21 11:30 10/25/21 12:26 Lorazepam 1 Mg Tab PO 11/24/21 11:29 2 mg QAM LI Administration Lorazepam 1 mg 10/25/21 17:00 10/25/21 17:10 Lorazepam 1 Mg Tab PO 11/24/21 16:59 1 mg DAILY@1700 LI Administration Metoprolol Succinate 50 mg 10/25/21 11:30 10/25/21 12:26 Metoprolol Succ 50mg Ext Rel Tab PO 11/24/21 11:29 50 mg DAILY LI Administration Potassium Chloride 10 meq 10/25/21 12:00 10/25/21 17:10 Potassium Chloride 10 Meq Tabcr PO 11/24/21 11:59 10 meq TIDM LI Administration Risperidone 0.5 mg 10/25/21 21:00 10/25/21 20:59 Risperidone 0.5 Mg Tablet PO 11/24/21 20:59 0.5 mg BID LI Administration NPO Date Last Intake of Fluids: 10/25/21 Time Last Intake of Fluids: 20:00 Date Last Intake of Solids: 10/24/21 Time Last Intake of Solids: 12:00 Past Medical History Medical History A-fib BPH (benign prostatic hyperplasia) Depression with anxiety Diastolic dysfunction GERD (gastroesophageal reflux disease) HLD (hyperlipidemia) HTN (hypertension) Past Family History Family History Father Prostate cancer Coronary heart disease Mother CHF (congestive heart failure) Past Surgical History Surgical History History of bilateral knee replacement History of hernia repair History of sinus surgery History of total left hip arthroplasty Social History Smoking Status: Never smoker Hx Alcohol Use: Yes Alcohol type: beer alcohol intake frequency: 0-2 drinks per day Hx Substance Use: No Last Used Substance: Days (ago) Physical Exam Vital Signs Last Vital Signs Temp 36.7 C 10/26/21 07:26 Pulse 76 10/26/21 07:26 Resp 18 10/26/21 07:26 BP 166/100 H 10/26/21 07:26 Pulse Ox 95 10/26/21 07:26 O2 Del Method 10/26/21 07:26 Testing Laboratory Results 10/26/21 06:19 10/26/21 06:19 PT 13.1 Seconds (9.0-12.0) H 10/26/21 06:19 INR 1.2 (0.9-1.1) H 10/26/21 06:19 Urine Color Dark Yellow 10/25/21 03:40 Urine Appearance Clear (Clear) 10/25/21 03:40 Urine pH 5.5 (4.5-7.5) 10/25/21 03:40 Ur Specific [place] 1.023 (1.000-1.030) 10/25/21 03:40 Urine Protein 2+ (Negative) H 10/25/21 03:40 Urine Glucose (UA) Negative (Negative) 10/25/21 03:40 Urine Ketones Trace (Negative) H 10/25/21 03:40 Urine Nitrite Negative (Negative) 10/25/21 03:40 Ur Leukocyte Esterase Negative (Negative) 10/25/21 03:40 Urine WBC (Auto) 0 /hpf (0-5) 10/25/21 03:40 Urine RBC (Auto) 0-4 /hpf (0-4) 10/25/21 03:40 U Hyaline Cast (Auto) 1-5 /lpf (0-5) 10/25/21 03:40 U Epithel Cells (Auto) 5-10 /lpf (0-5) H 10/25/21 03:40 Urine Bacteria (Auto) Negative (Negative) 10/25/21 03:40
[2021-10-26] MEDS ORDERED: PROMETHAZINE HCL 12.5 MG in SODIUM CHLORIDE 0.9% 50 ML IV PRN (07:35)
[2021-10-26] MEDS ORDERED: ONDANSETRON INJ 2 MG/ML 2 ML VIAL IV PRN (07:35)
[2021-10-26] MEDS ORDERED: ePHEDrine sulfate 50 MG/ML AMP IV PRN (07:35)
[2021-10-26] MEDS ORDERED: HYDROmorphone INJ 2 MG/ML SYR/VIAL IV PRN (07:35)
[2021-10-26] MEDS ORDERED: fentaNYL citrate 100 MCG/2 ML VIAL IV PRN (07:35)
[2021-10-26] MEDS ORDERED: ATROPINE SULFATE 0.1 MG/ML 10ML SYR IV PRN (07:35)
[2021-10-26] MEDS ORDERED: OPTIRAY 300 INJ ONE (08:15)
--- NOTE | 2021-10-26 08:39 | Fluoroscopy Report ---
INTRAOPERATIVE CHOLANGIOGRAM HISTORY: Post cholecystectomy. FLUOROSCOPY TIME: 4 seconds. 2 fluoroscopic spot images of the right upper quadrant.. FINDINGS: Fluoroscopy was provided for an intraoperative cholangiogram status post cholecystectomy. C ontrast was injected through the cystic duct remnant. The common bile duct is normal in course and ca liber. There are no filling defects seen within the common bile duct to suggest a retained stone. Co ntrast extends into the small bowel. There is no intrahepatic bile duct dilatation. IMPRESSION: Fluoroscopy provided for an intraoperative cholangiogram status post cholecystectomy. No filling defects within the common bile duct. ACT 112: Negative or not required by law. Electronically signed by: Dennis Baldwin M.D. 10/26/2021 8:38 AM
--- NOTE | 2021-10-26 08:46 | Post Operative Brief Note ---
PG Immediate Post Op with CF Date of Surgery October 26, 2021 Pre & Post Diagnosis Operation Date: 10/26/21 07:30 Pre-Op Diagnosis: (1) Acute cholecystitis Post-Op Diagnosis: (1) Acute cholecystitis I identified the patient and participated in the time-out.: Yes Procedure Operation Date: 10/26/21 07:30 Actual Procedures p Laparoscopic Cholecystectomy with Cholangiogram(Not Applicable) - Alex Macias MD, FACS Surgeon Alex Macias MD, FACS [employer] b jacob quick Estimated Blood Loss 15 Findings Consistent with Post-Op Diagnosis Specimens Specimen Description: a. gallbladder Culture 1. Gallbladder Drains Morris-Mathews Drain (19FR elfego)
--- NOTE | 2021-10-26 09:02 | Operative Report ---
PG Post Operative Report Pre & Post Diagnosis Operation Date: 10/26/21 07:30 Pre-Op Diagnosis: (1) Acute cholecystitis Post-Op Diagnosis: (1) Acute cholecystitis I identified the patient and participated in the time-out.: Yes Procedure Operation Date: 10/26/21 07:30 Actual Procedures p Laparoscopic Cholecystectomy with Cholangiogram(Not Applicable) - Alex Macias MD, FACS The patient was brought into the operating theater general endotracheal anesthesia the abdomen was shaved and prepped byline solution properly draped a timeout was had the patient identified antibiotics and been given routinely on the floor for acute cholecystitis this point we made a small incision supraumbilically sufficient to accommodate a Veress needle followed by CO2 to 15 cm mercury pressure followed by 5 mm trocar point of entry inspected no injury identified on direct visualization after identifying the gallbladder we could see that it was acutely edematous and inflamed I had a 5 mm epigastric port with preemptive local analgesic and 2 5 mm subcostal ports in a similar fashion the patient during reverse Trendelenburg rotated to the left this point we used the aspirating needle to drain the gallbladder which was slight yellowish drainage was not clear once this had been controlled by the grasper at the entry site we elevated the gallbladder the neck using another grasper which was significant edema appreciated dissected out mostly bluntly were able to identify the cystic duct as it was come off the gallbladder it was thick clip was placed at the takeoff an opening was made in the cystic duct sufficiently to place a #4 urethral catheter that a transverse abdominal wall and a 14 Angiocath serial x- rays were taken there was free flow into the duodenum very long corkscrew cystic duct I was not able to feel the proximal radical seems to favor going to the duodenum catheter was removed cystic duct was secured twice away from the common bile duct the gallbladder is removed in antegrade fashion using electrocautery and bluntly sharp dissection since exam of made it easier to dissect the left is much as posterior wall as we could once the gallbladder been freed from the liver bed we placed in an Endopouch and took it out through the epigastric port we needed to enlarge the incision as we were taken at due to the significant pathology which is necrosis part of gallbladder just Not outside the Patient As We Were Extracting It Once We Had Completely We Took Cultures of the Gallbladder and Subhepatic Suprahepatic Area Was Checked Hemostasis Appear Satisfactory I Elected to Drain This with a 19 Navin Drain Which We Did after I Put the Camera in the Right Upper Quadrant Trocar Site to Visualize the Initial Entry into the Umbilical Area into the Abdomen No Bleeding Was Appreciated a Catheter Was Placed Subhepatic Line and Taken out through the Right Upper Lateral Abdominal Trocar Tension Skin Edge with 2-0 Silk We Used Fascial Stitch [id number]-Evler 0 Vicryl for the Epigastric Area since We Enlarged the Incision the Other Ones Were Closed with 4-0 Monocryl Procedure Was Tolerated Well by the Patient Estimate Blood Loss 15 Cc Cultures for aerobes and anaerobes of the gallbladder were taken AddendumB Gustavo quick was present throughout the procedure and helped the retraction exposure and wound closure Addendum with patient's in recovery room and also called his daughter Hazel Malone RENAN Surgeon Alex Macias MD, FACS Manager [employer] caroline quick Estimated Blood Loss 15 Findings Consistent with Post-Op Diagnosis Acute gangrenous gallbladder Specimens Gallbladder and contents Drains 19 Navin subhepatic Description of Procedure merda I attest to the content of the Intraoperative Record and any orders documented therein. Any exceptions are noted below.
[2021-10-26] MEDS ORDERED: KETOROLAC 30 MG/ML VIAL ONE (09:07)
--- NOTE | 2021-10-26 10:00 | Anesthesiology Progress Note ---
Date of Service October 26, 2021 Anesthesia Post Procedure Vital Signs Vital Signs: Temp Pulse Pulse Pulse Resp BP BP 10/26/21 09:40 78 12 140/75 10/26/21 09:30 36.5 C 77 12 139/73 10/26/21 09:20 76 16 115/86 10/26/21 09:10 80 18 146/87 H 10/26/21 09:03 36.1 C L 102 H 12 152/111 H 10/26/21 07:44 57 L 10/26/21 07:26 36.7 C 76 18 10/25/21 19:55 83 10/26/21 03:36 36.5 C 69 18 10/26/21 02:12 36.5 C 81 18 10/25/21 22:20 77 10/25/21 23:46 36.3 C L 85 20 10/25/21 18:34 36.5 C 83 20 10/25/21 16:12 85 10/25/21 15:57 36.8 C 72 20 10/25/21 11:30 36.5 C 79 20 10/25/21 11:32 36.5 C 79 16 10/25/21 10:56 36.5 C 20 10/25/21 10:09 10/25/21 10:09 148/94 H 10/25/21 10:09 80 20 BP Pulse Ox O2 Del Method O2 Flow Rate 10/26/21 09:40 95 Nasal Cannula 2 10/26/21 09:30 94 Room Air 10/26/21 09:20 95 Oxymask 4 10/26/21 09:10 96 Oxymask 6 10/26/21 09:03 96 Oxymask 6 10/26/21 07:44 10/26/21 07:26 166/100 H 95 Room Air 10/25/21 19:55 10/26/21 03:36 142/88 H 94 Room Air 10/26/21 02:12 151/89 H 95 Room Air 10/25/21 22:20 10/25/21 23:46 156/94 H 93 Room Air 10/25/21 18:34 146/85 H 94 Room Air 10/25/21 16:12 10/25/21 15:57 166/98 H 95 Room Air 10/25/21 11:30 151/98 H 96 Room Air 10/25/21 11:32 151/98 H 96 Room Air 10/25/21 10:56 151/98 H 96 Room Air 10/25/21 10:09 97 10/25/21 10:09 10/25/21 10:09 Pain Intensity Right Abdomen: Pain Intensity: 6 Transfer of Care Handoff Completed per policy Notes Mental Status: alert / awake / arousable and participated in evaluation Patient Amnestic to Procedure: Yes Nausea / Vomiting: adequately controlled Pain: adequately controlled Airway Patency, RR, SpO2: stable & adequate BP & HR: stable & adequate Hydration State: stable & adequate Anesthetic Complications: no major complications apparent
[2021-10-26] MEDS ORDERED: oxyCODONE/ACETAMINOPHEN 5mg/325mg TAB PO PRN (10:01)
[2021-10-26] MEDS ORDERED: MoRPHine SULFATE 4 MG/ML 1 ML CARP\\VIAL IV PRN (10:01)
[2021-10-26] MEDS ORDERED: MoRPHine SULFATE 2 MG/ML CARP IV PRN (10:01)
[2021-10-26] MEDS: SERTRALINE HCL 100 MG TABLET PO SCH (10:09)
[2021-10-26] MEDS: FINASTERIDE 5 MG TAB PO SCH (10:09)
[2021-10-26] MEDS: busPIRone 5 MG TAB PO SCH ×2 (10:09→20:19)
[2021-10-26] MEDS: ATORVASTATIN 20 MG TAB PO SCH (10:09)
[2021-10-26] MEDS: risperiDONE 0.5 MG TABLET PO SCH ×2 (10:09→20:20)
[2021-10-26] MEDS: METOPROLOL SUCC 50MG EXT REL TAB PO SCH (10:09)
[2021-10-26] MEDS: amLODIPine BESYLATE 5 MG TAB PO SCH (10:10)
[2021-10-26] MEDS: PANTOprazole 40 MG TAB PO SCH (10:10)
[2021-10-26] MEDS: LORazepam 1 MG TAB PO SCH ×2 (10:14→16:49)
[2021-10-26] MEDS: POTASSIUM CHLORIDE 10 MEQ TABCR PO SCH (10:24)
[2021-10-26] MEDS: POTASSIUM CHLORIDE CRTAB 20 MEQ TABCR PO SCH ×2 (13:15→20:19)
--- NOTE | 2021-10-26 13:44 | Hospitalist Progress Note ---
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 He is being managed for the following: #. Acute Cholecystitis 06/2019 echo with EF 55%, and diastolic dysfunction. No history of TIA or CVA. Patient on Coumadin, INR reversed with 5 mg IV vitamin K at admission, status post lap digna with cholangiogram on 10/26/[address] Macias. Patient tolerating clear liquid diet, advance diet per surgery. Patient with no pain. Antibiotic, diet per surgery. Resume Coumadin when cleared per surgery. Patient doing well. #. Electrolytes abnormality: Monitor and replete as appropriate. Monitor potassium supplement requirement. #. Chronic Atrial fib continue metoprolol Resume warfarin when cleared per surgery. #. Other chronic medical conditions: HTN, depression with anxiety Continue with/resume home meds as and when appropriate. Gradually resume hypertensive meds. Losartan on hold. DVT ppx: SCDs until INR therapeutic. Dispo: med tele PCP: Raffaele FULL CODE Admission and Anticipated Discharge Date Admission Date: October 25, 2021 Subjective Patient seen and examined at bedside as a follow-up of acute cholecystitis status post laparoscopic cholecystectomy with cholangiogram by Dr. Macias on 10/26/2021. Patient was sitting up in bed, eating his lunch, tolerating clear liquid diet, had cholecystectomy done in the morning, denies any pain at operative site, reports feeling better. Patient denies any headache or dizziness or chest pain or sore throat or cough or fever or belly pain or other review of symptoms. Patient has not moved gas or bowel but he just had surgery in the morning. Physical Exam Physical Exam: GENERAL: Alert and oriented x3. NAD, on 2L NC O2. HEENT: No pallor, no icterus. Pupils equal, round and reactive to light. Oral mucosa moist. NECK: No JVD, no neck masses. HEART: S1 and S2 heard. Regular rate and rhythm. No murmur, no gallop. RESPIRATORY SYSTEM: Normal AP diameter. No accessory muscle use. No wheezing, no crackles. ABDOMEN: Soft, bowel sounds present, nontender on superficial palpation, no distention. Clean dressing over lap digna sites. JENNA drain with scant mostly serous collection noted CENTRAL NERVOUS SYSTEM: No facial droop. Speech is clear. Obeys simple commands. Moves extremities. EXTREMITIES: No edema, no erythema seen. Results & Data Results & Data ([facility]) Vital Signs (Past 12 Hours) Vital Signs Temp Pulse Pulse Pulse Resp BP BP 10/26/21 09:40 78 12 140/75 10/26/21 09:30 36.5 C 77 12 139/73 10/26/21 09:20 76 16 115/86 10/26/21 09:10 80 18 146/87 H 10/26/21 09:03 36.1 C L 102 H 12 152/111 H 10/26/21 07:44 57 L 10/26/21 07:26 36.7 C 76 18 166/100 H 10/26/21 03:36 36.5 C 69 18 142/88 H 10/26/21 02:12 36.5 C 81 18 151/89 H Pulse Ox O2 Del Method O2 Flow Rate 10/26/21 09:40 95 Nasal Cannula 2 10/26/21 09:30 94 Room Air 10/26/21 09:20 95 Oxymask 4 10/26/21 09:10 96 Oxymask 6 10/26/21 09:03 96 Oxymask 6 10/26/21 07:44 10/26/21 07:26 95 Room Air 10/26/21 03:36 94 Room Air 10/26/21 02:12 95 Room Air
[2021-10-26] MEDS ORDERED: WARFARIN SOD 3 MG TAB PO SCH (16:00)
[2021-10-26] MEDS: WARFARIN SOD 3 MG TAB PO SCH (16:49)
[2021-10-26] MEDS: oxyCODONE/ACETAMINOPHEN 5mg/325mg TAB PO PRN ×2 (18:11→23:02)
[2021-10-27] MEDS ORDERED: AMOXICILLIN/CLAVULANATE 875 MG TAB PO SCH
[2021-10-27] MEDS: PIPERACILLIN/TAZOBACTAM 4.5 GM in DEXTROSE 5% 100 ML IV SCH ×2 (02:30→09:49)
[2021-10-27] MEDS: LACTATED RINGER'S 1,000 ML IV SCH (04:31)
[2021-10-27 07:17] LABS: INR 1.2 (0.9-1.1); Prothrombin Time 12.3 Seconds (9.0-12.0)
[2021-10-27 07:24] LABS: Hematocrit (blood only) 36.9 % (40.1-51.0); Hemoglobin 12.5 g/dl (14.0-18.0); Mean Corpuscular Hemoglobin 29.1 pg (25.0-34.0); Mean Corpuscular Hgb Conc 33.9 g/dL (32.0-36.0); Mean Corpuscular Volume 85.8 fL (80.0-100.0); Mean Platelet Volume 10.3 fL (9.4-12.4); Platelet Count 104 K/uL (130-400); RDW Coefficient of Variation 13.4 % (11.5-14.5); RDW Standard Deviation 42.2 fL (36.4-46.3); White Blood Count 8.57 K/ul (4.8-10.8)
[2021-10-27 07:37] LABS: BUN Creatinine Ratio 16.1 (10-20); Calcium 8.2 mg/dl (8.5-10.1); Creatinine Clr Calc Pharmacy 128.4 ml/min; Est GFR (African American) 114.9 ml/min; Est GFR (Non-African American) 99.1 ml/min; Magnesium 1.8 mg/dl (1.7-2.4); Phosphorus 2.7 mg/dl (2.5-4.9); Potassium 3.7 mmol/L (3.5-5.1)
[2021-10-27] MEDS: risperiDONE 0.5 MG TABLET PO SCH (07:40)
[2021-10-27] MEDS: amLODIPine BESYLATE 5 MG TAB PO SCH (07:40)
[2021-10-27] MEDS: METOPROLOL SUCC 50MG EXT REL TAB PO SCH (07:41)
[2021-10-27] MEDS: PANTOprazole 40 MG TAB PO SCH (07:41)
[2021-10-27] MEDS: SERTRALINE HCL 100 MG TABLET PO SCH (07:41)
[2021-10-27] MEDS: FINASTERIDE 5 MG TAB PO SCH (07:41)
[2021-10-27] MEDS: busPIRone 5 MG TAB PO SCH (07:41)
[2021-10-27] MEDS: POTASSIUM CHLORIDE CRTAB 20 MEQ TABCR PO SCH ×2 (07:42→13:39)
[2021-10-27 07:45] LABS: Basophils # (auto) 0.01 K/uL (0-0.2); Basophils % (auto) 0.1 %; Immature Granulocytes # (auto) 0.03 K/uL (0.00-0.02); Immature Granulocytes % (auto) 0.4 %; Lymphocytes # (auto) 0.61 K/uL (1.2-3.4); Lymphocytes % (auto) 7.1 %; Monocytes # (auto) 0.69 K/uL (0.24-0.82); Monocytes % (auto) 8.1 %; Neutrophils # (auto) 7.23 K/uL (1.4-6.5); Neutrophils % (auto) 84.3 %
[2021-10-27] MEDS: LORazepam 1 MG TAB PO SCH ×2 (07:45→17:27)
[2021-10-27] MEDS: ATORVASTATIN 20 MG TAB PO SCH (08:10)
--- NOTE | 2021-10-27 09:32 | Surgery Progress Note ---
Date of Service October 27, 2021 Assessment & Plan (1) Acute cholecystitis: Plan: Patient is first postoperative day status post laparoscopic cholecystectomy path pending cholangiogram (no filling defect in the common bile duct) Intra-abdominal findings and operation was discussed with the patient Also discussed the patient anticipated recovery time and limitations in the immediate postoperative. Cultures are intraoperatively showed gram-positive bacilli and gram-negative bacilli pending final sensitivity Navin drain was removed Plan 10/27/21 #1 POD status post lap digna intraoperative cholangiogram The platelet count has dropped a little bit yesterday but his baseline when he came in was about 114,000 and today seems to be going back up this may be long- term He had a bilirubin of 2.0 preoperatively no other liver function elevated suspect this is all related to the acute cholecystitis but I did repeat his liver function tests they are not back yet As far as the cultures on the gallbladder are not back yet but I would recommend sending the patient home on some Augmentin for 3 more days Instructed the patient no driving for about a week no lifting anything heavier than 10 pounds he may shower tomorrow and the Steri-Strips should fall off in approximately 1 week I also discussed with the patient that 1 out of 10 people that have a cholecystectomy may experience some more frequent bowel movements or even the stools for about 2 or 3 weeks after surgery I asked the patient to come back to our office next Thursday call for an appointment I discussed with from my point of view the patient can be discharged today if it is okay with him The patient has been restarted on Coumadin and certainly can resume to the point of full anticoagulation At this point we will keep the patient n.p.o. broad-spectrum antibiotics would be given vitamin K 1 dose should be given replace potassium and plan for surgery in the morning Risk and complications were explained to the patient including bleeding infection conversion open procedure and he and his would like to proceed for him to have surgery All question answered He is on the surgical schedule for 730 tomorrow morning we will repeat a potassium and INR in the morning These plans were also discussed with the medical service who is going to admit the patient Admission and Anticipated Discharge Date Admission Date: October 25, 2021 Subjective Feels much better than preoperatively has not had much discomfort took a pain pill last night is able to tolerate liquids without any issue positive flatus Physical Exam Physical Exam: Alert coherent resting comfortable in bed in no distress Sclera is nonicteric Abdomen is soft no tenderness some blood stain on the Steri-Strips in the umbilical and epigastric area Navin drainage serosanguineous nonbilious minimal drainage Results & Data ([facility]) Vital Signs (Past 12 Hours) Vital Signs Temp Pulse Pulse Resp BP BP Pulse Ox 10/27/21 07:20 36.5 C 61 16 131/76 94 10/27/21 07:17 72 10/27/21 03:00 36.4 C L 71 16 150/98 H 96 10/27/21 00:03 73 10/26/21 23:05 36.2 C L 75 20 155/90 H 96 O2 Del Method 10/27/21 07:20 Room Air 10/27/21 07:17 10/27/21 03:00 Room Air 10/27/21 00:03 10/26/21 23:05 Room Air PG Care Time/CCT Total # of Minutes Spent Total Time Spent with Patient: Total time spent is greater than 50% in coordination of care (as documented) at patient's floor/unit and/or counseling patient: Coding Level of Care Code None Diagnoses Acute cholecystitis K81.0
[2021-10-27 09:58] LABS: Albumin Level 3.5 gm/dl (3.4-5.0); Bilirubin Direct 0.3 mg/dl (0-0.2); Bilirubin,Total 1.3 mg/dl (0.2-1.0); Total Protein 6.2 gm/dl (6.0-8.3)
--- NOTE | 2021-10-27 14:26 | Discharge Summary ---
Date of Service October 27, 2021 Admission HPI Per Admitting Provider This is a 70-year-old male who has significant past medical history of chronic atrial fibrillation anticoagulated on warfarin, HTN, HLD, diastolic dysfunction, GERD, BPH, depression who presents to ED secondary to right flank pain and right upper quadrant pain which started yesterday at approximately 11 PM. Pain initially started in the right flank and radiated to the right upper quadrant. Pain is constant. Nothing makes pain worse. It was made better with IV morphine. He denies ever having similar symptoms in the past. Does not associated with meals. Denies any prior history of gallbladder disease. States over the last 2 to 3 days his stomach has not felt, "quite right." When pain started last evening he did have 2-3 episodes of vomiting as well as nausea. He continues to feel nauseated. He denies any fever, chills, sweats, lightheadedness, dizziness, chest pain, shortness of breath, cough, URI symptoms, hematemesis, melena, medic easier, dysuria, increased urgency or frequency with urination. In ED patient remained hemodynamically stable. Imaging revealed a calculus cholecystitis. General surgery was consulted and plan is for patient to go to the OR tomorrow morning at 730 AM. Admission Exam Per Admitting Provider Constitutional: WD/WN, vitals as above, NAD, sitting up in bed, pleasant, conversing easily Head: Normocephalic, Atraumatic Eyes: PERRL, conjunctivae normal, anicteric sclerae ENMT: external ear and nose normal, oropharynx normal Neck: trachea midline, no thyromegaly normal visual inspection Respiratory: normal respiratory effort, lungs clear to auscultation, no wheeze, rales, rhonchi. Normal insp/exp effort, no accessory muscle use Cardiovascular: IRR/IRR, no murmur, no edema Vessels: no JVD or carotid bruit Chest: normal inspection of chest Abdomen: normal bowel sounds, soft, tender to palp RUQ and epigastrium, Musculoskeletal: no cyanosis or clubbing, AROM x 4 Skin: no rashes, warm and dry normal turgor Neurologic: PERRL, EOMI, accommodation nl, no face palsy, no dysarthria CN's II-XI intact bilaterally and moves all extremities Psychiatric: A+Ox3, euthymic affect : deferred Principal Diagnosis Acute cholecystitis status post lap cholecystectomy 10/[address] Macias Discharge Exam GENERAL: Alert and oriented x3. NAD, on RA HEENT: No pallor, no icterus. Pupils equal, round and reactive to light. Oral mucosa moist. NECK: No JVD, no neck masses. HEART: S1 and S2 heard. Regular rate and rhythm. No murmur, no gallop. RESPIRATORY SYSTEM: Normal AP diameter. No accessory muscle use. No wheezing, no crackles. ABDOMEN: Soft, bowel sounds present, nontender on superficial palpation, no distention. Clean dressing over lap digna sites. CENTRAL NERVOUS SYSTEM: No facial droop. Speech is clear. Obeys simple commands. Moves extremities. EXTREMITIES: No edema, no erythema seen. Discharge Data Allergies Allergy/AdvReac Type Severity Reaction Status Date / Time No Known Allergies Allergy Verified 12/08/18 15:35 Consultations 10/25/21 09:39 ED Decision to Admit Stat 10/25/21 09:42 Consult General Surgery Routine 10/25/21 10:53 Consult Anesthesiology Routine Procedures Performed Operation Date: 10/26/21 07:30 Actual Procedures p Laparoscopic Cholecystectomy with Cholangiogram(Not Applicable) - Alex Macias MD, FACS Ordered Studies 10/25/21 03:48 CT abd pelvis wo con Urgent 10/25/21 05:29 US gallbladder Stat 10/26/21 07:11 [place] cholangiogram OR Routine Hospital Course (1) Acute cholecystitis: (2) Hypokalemia: (3) A-fib: (4) HTN (hypertension): (5) HLD (hyperlipidemia): (6) Depression with anxiety: Plan This is a 70-year-old male who has significant past medical history of chronic atrial fibrillation anticoagulated on warfarin, HTN, HLD, diastolic dysfunction, GERD, BPH, depression who presents to ED 10/26 secondary to right flank pain and right upper quadrant pain which started 1 day ago [employer] at approximately 11 PM. He was managed for the following: #. Acute Cholecystitis 06/2019 echo with EF 55%, and diastolic dysfunction. No history of TIA or CVA. Patient on Coumadin, INR reversed with 5 mg IV vitamin K at admission, status post lap digna with cholangiogram on 10/26/[address] Macias. Patient tolerating clear liquid diet, advance diet to soft, if no pain then discharge. Patient with no pain. Pt will be discharged on Augmentin, coumadin resumed, pt to get PT/INR in 3 days and follow up w/ coumadin clinic around the same time. Patient doing well. Moving bowel. #. Electrolytes abnormality: Monitor and replete as appropriate. Pt to get CMP in a week upon discharge. #. Chronic Atrial fib continue metoprolol and warfarin. #. Other chronic medical conditions: HTN, depression with anxiety Continue with/resume home meds as and when appropriate. DVT ppx: SCDs until INR therapeutic. PCP: Raffaele FULL CODE Pt being discharged to home w/ following instruction at the point of discharge: Follow-up with your primary care physician within a week time. Follow-up with your surgery doctor next Thursday as scheduled. You will be prescribed antibiotics for 4 days upon discharge. No driving for about a week, no lifting anything heavier than 10 pounds. Stay on soft diet for couple of days and then gradually advance to towards your regular consistency. For your pain, you can take tylenol OTC , for severe pain, you are prescribed percocet. Get your blood work CBC and CMP done in a week time and have the result forwarded to your PCP. Continue you home Coumadin dose. Get your Blood work PT/INR done in 3 days upon discharge and f/u Coumadin clinic for necessary adjustment of your warfarin. Take medication as prescribed. Total Time Total Time Spent Total Time Spent (In Minutes): 35 Discharge Plan Discharge Items Patient Disposition: Home - Self-Care Reason For Visit: ACALCULUS CHOLECYSTITIS Discharge Diagnosis: Acute cholecystitis status post lap cholecystectomy 10/[address] Macias Activity: As commented below Lifting: No more than 10 pounds Bathing Comment: Can shower over steri-strips Driving/Machine Use: when pain free Non-emergency contact: Surgeon Call non-emergency contact if: you have any medication questions, your pain is not controlled, you have a fever, your temperature is above 101.5 and your wound has increased redness Follow-up/Referrals: Alex Macias MD, FACS [Surgeon] - (Please call to make an appt in 1 week) Golden Castorena MD [Primary Care Provider] - Diet: Regular Addtl Attending Provider Instructions: Follow-up with your primary care physician within a week time. Follow-up with your surgery doctor next Thursday as scheduled. You will be prescribed antibiotics for 4 days upon discharge. No driving for about a week, no lifting anything heavier than 10 pounds. Stay on soft diet for couple of days and then gradually advance to towards your regular consistency. For your pain, you can take tylenol OTC , for severe pain, you are prescribed percocet. Get your blood work CBC and CMP done in a week time and have the result forwarded to your PCP. Continue you home Coumadin dose. Get your Blood work PT/INR done in 3 days upon discharge and f/u Coumadin clinic for necessary adjustment of your warfarin. Take medication as prescribed. Pending Studies at Discharge: Yes (10/26 GB final Cx. ) Stand-Alone Forms: My [facility], Smoking Cessation Medications and DC Order Prescriptions: New oxycodone-acetaminophen [Percocet] 5-325 mg tablet 1 - 2 tab PO Q4H PRN (Reason: pain, initial therapy, max 6 daily) Qty: 15 0RF amoxicillin-pot clavulanate 875-125 mg tablet 1 tab PO BID 4 Days Qty: 8 0RF Continued atorvastatin 20 mg tablet 20 mg PO DAILY metoprolol succinate 50 mg tablet extended release 24 hr 50 mg PO DAILY sertraline 100 mg tablet 300 mg PO QAM warfarin 6 mg tablet 6 mg PO MOWESA@1630 warfarin 6 mg tablet 3 mg PO SUTUTHFR@1630 lorazepam 2 mg tablet 2 mg PO QAM amlodipine 10 mg tablet 10 mg PO DAILY buspirone 10 mg tablet 10 mg PO BID lorazepam 1 mg tablet 1 mg PO PM potassium chloride 10 mEq tablet,ER particles/crystals 10 meq PO TIDM pantoprazole 20 mg Tablet,Delayed Release (Dr/Ec) 20 mg PO DAILY losartan 100 mg tablet 100 mg PO DAILY risperidone 0.5 mg tablet 0.5 mg PO [facility] finasteride 5 mg tablet 5 mg PO DAILY Discharge Orders: Discharge Order (Routine); Ordered 10/27/21 Ordered By: Fabiola Carr Admission Data Admit Date/Time: 10/25/21 09:42 Attending Provider: Fabiola Carr Admit Provider: Fabrice Barragan Primary Care Provider: Golden Castorena Other Providers: Fabrice Barragan ; Alex Macias ; Dennis Maya
[2021-10-27] MEDS ORDERED: Nursing to Pharmacy Communication SCH (17:00)
[2021-10-27] MEDS: WARFARIN SOD 3 MG TAB PO SCH (17:27)
== END 2021-10-27 18:07 | disposition home or self-care (01) | DRG 418 ==
LOC: ED 03:26 → 2W 09:42 → SUATTDRO 09:42 → 2W 10:27